=== PATIENT | female | born 1980 | race African-American/Black ===

== ENCOUNTER 2019-06-25 07:22 | Emergency (ER) | payer OTHER ==
[~2019-06-25] VITALS: Ht 167.6 cm; Wt 100.0 kg
[2019-06-25 07:28] VITALS: BP 138/84
== END 2019-06-25 07:45 | disposition left against medical advice (07) ==
LOC: ER 07:22
DX: Z53.21 Procedure and treatment not carried out due to patient leaving prior to being seen by health care provider (principal)